=== PATIENT | female | born 1990 | race Caucasian/White ===

== ENCOUNTER 2018-12-03 03:51 | Day surgery (SDC) | payer BC, OTHER ==
[~2018-12-03] VITALS: Ht 154.9 cm; Wt 70.3 kg
--- NOTE | ~2018-12-03 | O ---
[facility] [place] [address] OPERATIVE REPORT Name: ZAKI HARKINS I [id number] Admission: 12/03/18 ������������������ Attend Phys: Wilfredo Garibay MD Discharge: 12/03/18 ������������������ Date of : 89 Report #: [id number] THIS REPORT FOR: //name// CC: Heriberto Garibay DATE OF SERVICE: 12/03/2018 PREOPERATIVE DIAGNOSIS: Menorrhagia, intermenstrual bleeding. POSTOPERATIVE DIAGNOSIS: Menorrhagia, intermenstrual bleeding. SURGEON: Wilfredo Garibay MD. FLEET COORDINATOR: None. ANESTHESIA: General. PROCEDURE: D and C, hysteroscopy, exam under anesthesia. ESTIMATED BLOOD LOSS: 10 mL. SPECIMEN: Endometrial curettings. COMPLICATIONS: None. FINDINGS: Preoperative sonohysterogram showed either endometrial polyp or intrauterine synechia. Exam under anesthesia revealed an anterior flexed, normal size, mobile uterus with no adnexal masses. Perineum was normal. The anus showed external hemorrhoids. Hysteroscopic findings showed a normal endometrial cavity with no evidence of intramural or submucosal fibroids nor endometrial polyps nor intrauterine synechia. DESCRIPTION OF PROCEDURE: The patient was seen in the preoperative holding area where consent was obtained for surgery. Also the postoperative course was reviewed with the patient including risks of this procedure. She was then taken to the operating room, administered general anesthesia and prepped and draped in sterile fashion in dorsal lithotomy position. Modified pelvic exam under anesthesia was carried out. The anterior lip of the cervix was then grasped using a single tooth tenaculum. The hysteroscope was inserted under direct hysteroscopic vision, however, visualization was suboptimal. The hysteroscope was then removed. The uterus sounded to a depth of 7.5 cm. The cervix was then dilated to a 14 dilator and then was inserted a MyoSure hysteroscope with the evacuation system. Normal saline distending medium was used. Intrauterine findings were as dictated as above. The hysteroscope was then removed. The endocervical canal was further dilated using Hanks dilators. A smooth sharp [facility] [address] [place] [address] OPERATIVE REPORT Name: ZAKI HARKINS I Room #: DE[facility].#: [id number] Admission: 12/03/18 ������������������ Attend Phys: Wilfredo Garibay MD Discharge: 12/03/18 ������������������ Date of : 89 Report #: [id number] curette was then used to obtain endometrial curettings from the entirety of the endometrial cavity. These were sent for pathology. Single tooth tenaculum was removed. Hemostasis was observed with pressure on the cervix with sponge on a stick. All instrument and pack counts were correct. The patient was brought out of general anesthesia and taken to recovery room with IV infusing well. She is to take ibuprofen for pain, nothing per vagina for 1 week. She is to follow up as outpatient in [address] Garibay's office. ��������������������������������������������� ���������������������������������������� By: ��������������������������������������������� [id number] Wilfredo Garibay MD /emmy
[2018-12-03 07:23] VITALS: BP 123/69
[2018-12-03 09:50] VITALS: BP 123/69
--- NOTE | 2018-12-04 17:07 | PATH ---
[facility] [address] [place] [address] PATHOLOGY RPT PROCEDURE Name: ZAKI HARKINS I Room #: DEP [facility]..#: [id number] ������������������ Admission: 12/03/18 ������������������ Date of : 89 Discharge: 12/03/18 Report #: [id number] Path Case #: [id number] [facility] Accession Number: [id number] . 01 Material submitted: . ENDOMETRIAL CURETTINGS . 01 Clinical history: . Endometrial polyps . 02 Diagnosis: Uterus, endometrial curettings: - Disordered proliferative endometrium. - Negative for hyperplasia, atypia or malignancy. . (IUV:mml; 12/04/2018) QLM/12/04/2018 . 02 Electronically signed: . Ev Chapa MD, Pathologist NPI- [id number] . 01 Gross description: . The specimen is received in formalin, labeled "Harkins, Zaki, endometrial curettings" and consists of hemorrhagic, soft, and pink-brown tissue measuring 2.7 x 2.5 x 0.4 cm which is entirely submitted in A1. (SDY; 12/03/2018) SYU/SYU . 02 Pathologist provided ICD-10: N85.9 . 02 CPT . 498880 Specimen Comment: A courtesy copy of this report has been sent to Specimen Comment: [phone], . Specimen Comment: Report sent to / DR JARVIS Performed at: [address] [facility], [place], [place] [id number] MD Julio Barker MD Phone: [phone] Performed at: [address] [id number] MD Ev Chapa MD Phone: [phone]
== END 2018-12-03 10:20 | disposition home or self-care (01) ==
LOC: OR 03:51 → TBA 03:51 → OR 08:51
DX: N92.0 Excessive and frequent menstruation with regular cycle (principal); N92.3 Ovulation bleeding; Z87.891 Personal history of nicotine dependence; Z98.890 Other specified postprocedural states
CPT/HCPCS: 50010; 50101; 54172; 54173; 62110; 62900; 70005